=== PATIENT | female | born 1955 | race Caucasian/White ===

== ENCOUNTER 2021-04-02 15:16 | Emergency (ER) | payer BC ==
--- NOTE | 2021-04-02 16:19 | ED ---
General Adult HPI - General Stated complaint: headache, cough Time Seen by Provider: 04/02/21 16:00 Source: patient, RN notes reviewed Mode of arrival: ambulatory Limitations: no limitations - History of Present Illness Initial comments: This a 65-year-old female presents emergency from chief complaint cough congestion. Patient states that she had covid 19 symptoms. Patient states this started 2 days ago. Patient had prior vaccine. Patient states that she has mild cough, congestion fever chills but is shortness of breath. Patient denies any nausea vomiting diarrhea constipation. Patient offers no complaints. - Related Data Previous Rx's Medication Instructions Recorded Azithromycin [Zithromax Z-pack (6 0 mg PO DIRECTED #1 packet 04/02/21 tabs)] Allergies Allergy/AdvReac Type Severity Reaction Status Date / Time sulfamethoxazole Allergy Rash/Hives Verified 04/02/21 16:17 [From Bactrim] trimethoprim [From Bactrim] Allergy Rash/Hives Verified 04/02/21 16:17 Review of Systems ROS Statement: Those systems with pertinent positive or pertinent negative responses have been documented in the HPI. ROS Other: All systems not noted in ROS Statement are negative. Course Vital Signs 04/02/21 16:18 Temperature 97.1 F L Pulse Rate 97 Respiratory 18 Rate Blood Pressure 148/68 O2 Sat by Pulse 100 Oximetry Medical Decision Making - Medical Decision Making X-ray is unremarkable covid 19 negative. Patient will be discharged in stable condition return parameters were discussed. - Lab Data Lab Results 04/02/21 Range/Units 16:36 Coronavirus (PCR) Not Detected (Not Detectd) Disposition Clinical Impression: URI (upper respiratory infection) Disposition: HOME SELF-CARE Condition: Stable Instructions (If sedation given, give patient instructions): Upper Respiratory Infection (ED) Additional Instructions: Please return to the Emergency Department if symptoms worsen or any other concerns. Prescriptions: Azithromycin [Zithromax Z-pack (6 tabs)] 0 mg PO DIRECTED #1 packet Is patient prescribed a controlled substance at d/c from ED?: No Referrals: Nonstaff,Physician [Primary Care Provider] - 1-2 days Time of Disposition: 17:37
--- NOTE | 2021-04-02 16:37 | XR ---
EXAMINATION TYPE: XR chest 2V DATE OF EXAM: 04/02/2021 COMPARISON: NONE HISTORY: Cough TECHNIQUE: 2 views FINDINGS: Heart is normal. Lungs are clear of consolidation. There are no hilar masses. There is some spurring in the thoracic spine. IMPRESSION: No active cardiopulmonary disease. Normal heart.
[2021-04-02 19:04] VITALS: BP 210/90; PULSE 94; RESP 16; TEMP 98.2
== END 2021-04-02 17:58 | disposition home or self-care (01) ==
LOC: EC 15:16
DX: J06.9 Acute upper respiratory infection, unspecified (principal); Z20.822 Contact with and (suspected) exposure to COVID-19
CPT/HCPCS: 71046; 87635; 99283